=== PATIENT | male | born 2000 | race African-American/Black ===

== ENCOUNTER → 2024-02-26 07:17 | Outpatient (CLI) | payer OTHER, SELFPAY ==
--- NOTE | 2024-02-26 07:52 | DI.MRI.S_ITS ---
PROCEDURE: MR HEAD/BRAIN WO/W CON INDICATIONS: headaches TECHNIQUE: Noncontrast axial T1 spin echo, axial T2 fast spin echo, sagittal and axial FLAIR, coronal T2 fast spin echo, axial gradient echo, axial diffusion and ADC through the brain. After the administration of contrast, axial and coronal and sagittal 3D VIBE or T1 spin echo with fat saturation through the brain. COMPARISON: [facility], CT, CT HEAD WITHOUT CONTRAST, 01/18/2024, 15:13. FINDINGS: Image quality: Excellent. CSF Spaces: Basal cisterns are patent. No extra-axial fluid collections. Ventricles are normal in size and shape. Brain: No midline shift. No intracranial bleeds or masses. No abnormal intracranial enhancement. The brainstem appears normal. Diffusion-weighted images demonstrate no acute infarct. No chronic ischemic insults. Normal intravascular flow voids are present. There are several scattered areas punctate hypointense T1, hyperintense T2 signal predominantly within the cerebral hemispheres. These are overall hypo intense on FLAIR. They are nonenhancing. Skull and face: Calvarial marrow is normal in signal. Orbits appear normal. Sinuses: Sinuses appear clear. Minimal fluid is present within mastoid air cells. IMPRESSION: Punctate areas of hypointense T1/FLAIR and hyperintense T2 signal within the cerebral hemispheres as above. These are overall nonspecific. They appear to follow CSF signal and could represent perivascular spaces or small neuroglial cysts. Interval follow-up in 3-6 months is recommended. Dictated by: Elena Lu M.D. on 02/26/2024 at 20:23 Approved by: Elena Lu M.D. on 02/26/2024 at 20:28
== END ==
PROVIDERS: PCP Preventive Medicine Aerospace Medicine; Referring Provider Preventive Medicine Aerospace Medicine; Visit Provider Preventive Medicine Aerospace Medicine
DX: R51.9 Headache, unspecified (principal); R04.0 Epistaxis
CPT/HCPCS: 70553; A9579